=== PATIENT | male | born 1960 | race Caucasian/White ===

== ENCOUNTER 2016-10-22 10:15 | Emergency (ER) | payer OTHER ==
[2016-10-22 11:38] LABS: SPECIFIC GRAVITY 1.015 (1.001-1.030); URINE BILIRUBIN NEGATIVE (NEGATIVE); URINE BLOOD 4+ (NEGATIVE); URINE GLUCOSE (UA) NEGATIVE (NEGATIVE); URINE LEUKOCYTE ESTERASE TRACE (NEGATIVE); URINE NITRITE NEGATIVE (NEGATIVE); URINE PROTEIN 2+ (NEGATIVE); URINE UROBILINOGEN 1 mg/dL (0-1 mg/dl)
[2016-10-22 11:39] LABS: URINE APPEARANCE HAZY; URINE COLOR RED
[2016-10-22 11:45] LABS: URINE BACTERIA RARE; URINE EPITHELIAL CELLS 0-1 /hpf; URINE RBC >100 /hpf; URINE WBC 0-1 /hpf
[2016-10-22 12:32] LABS: ABSOLUTE NEUTROPHIL COUNT 8.9 K/mm3 (1.8-7.7); BASO # 0.1 K/mm3 (0.0-0.2); BASO % 0.5 % (0.2-1.0); EOS # 0.2 (0.0-0.5); EOS % 1.7 % (0.9-2.9); HEMATOCRIT 48.2 % (32.0-52.0); HEMOGLOBIN 16.7 gm/l (14.0-18.0); IMM NEUT # 0.1 K/mm3 (0-0.2); IMM NEUT% 0.6 % (0-1); LYMPH # 3.4 (1.0-4.8); LYMPH % 23.4 % (15-45); MEAN CELL VOLUME 92.5 fl (80.0-94.0); MEAN CORPUSCULAR HEMOGLOBIN 32.1 pg (27.0-31.0); MEAN CORPUSCULAR HGB CONC 34.6 g/dl (33.0-37.0); MEAN PLATELET VOLUME 10.8 fl (7.4-10.4); MONO # 1.7 (0.0-0.8); NEUT % 61.8 % (43-75); PLATELET COUNT 209 K/mm3 (130-400); RED CELL DISTRIBUTION WIDTH 14.5 % (11.5-14.5)
[2016-10-22 12:38] LABS: INR 1.09; PROTHROMBIN TIME 11.4 SECONDS (9.3-11.4)
[2016-10-22 12:47] LABS: ALB/GLOB RATIO 0.4 (>1.0); ALBUMIN 2.1 gm/dL (3.5-5.7); CALCIUM 8.7 mg/dL (8.6-10.3)
--- NOTE | 2016-10-22 12:52 | RAD ---
CHEST - 2 VIEWS COMPARISON: Chest 2 views, 10/07/2014 HISTORY: Cough. FINDINGS: Views: Frontal and lateral chest Lungs: Focal increased opacity where the anterior left sixth rib crosses the posterior left ninth rib Heart and vessels: Normal Trachea and bronchi: Normal Mediastinum and brain: Normal Costophrenic sulci: Normal Chest wall and bones: Normal. Upper abdomen: Normal. IMPRESSION: Focal increased opacity where the anterior left sixth rib crosses the posterior left ninth rib. An artifact is favored. A small infiltrate or poorly marginated mass could have a similar appearance. Recommendation: Lordotic view of the chest.
--- NOTE | 2016-10-22 13:37 | RAD ---
CHEST - 1 VIEW COMPARISON: Chest 2 views, 10/22/2016 HISTORY: Possible nodule or infiltrate in the left lung base. FINDINGS: Views: Lordotic view. Lungs: The opacity in the left lung base is an artifact and does not persist. Heart and vessels: Normal Trachea and bronchi: Normal Mediastinum and brain: Normal Costophrenic sulci: Normal Chest wall and bones: Normal Upper abdomen: Normal. IMPRESSION: No acute finding. No mass or infiltrate in the left lung base.
== END 2016-10-22 14:07 | disposition home or self-care (01) ==
LOC: ED 10:15
DX: K72.90 Hepatic failure, unspecified without coma (principal); R31.29 Other microscopic hematuria; F12.90 Cannabis use, unspecified, uncomplicated; F17.210 Nicotine dependence, cigarettes, uncomplicated